=== PATIENT | female | born 1995 | race Caucasian/White ===

== ENCOUNTER 2017-01-01 22:26 | Emergency (ER) | payer MEDICAID ==
--- NOTE | 2017-01-01 22:54 | EDPHY ---
H & P Stated Complaint: 2-3 hrs migraine, couldn't take sumatriptan in time HPI/ROS: HPI CHIEF COMPLAINT: Migraine headache HISTORY OF PRESENT ILLNESS: This patient very pleasant 21-year-old female otherwise healthy no significant medical history except for migraine headaches. She presents emergency room with a left-sided throbbing frontal migraine headache. She reports to me this is exactly like her typical migraine. She gets a headache a week. She has had this since puberty. She denies any neck pain fever or sudden onset thunderclap headache. This feels exactly like her previous migraines. 1 episode of vomiting. No visual disturbance. No chest pain or shortness of breath. She did take sumatriptan prior to arrival. Headaches been present for 2 hours. The sumatriptan did help slightly but continues to have a headache and decided come the emergency room. 10/04 left- sided frontal throbbing. Past Medical History: Migraine headaches Past Surgical History: Denies recent surgery Social History: Denies daily use drugs alcohol tobacco products. [employer] student. Family History: Noncontributory ROS REVIEW OF SYSTEMS: A comprehensive 10 point review of systems is otherwise negative aside from elements mentioned in the history of present illness. Exam Constitutional appears well nontoxic, no acute distress, triage nursing summary reviewed, vital signs reviewed, awake/alert. Vital signs reviewed. Afebrile. Eyes normal conjunctivae and sclera, EOMI, PERRLA. HENT normal inspection, atraumatic, moist mucus membranes, no epistaxis, neck supple/ no meningismus, no raccoon eyes. Respiratory clear to auscultation bilaterally, normal breath sounds, no respiratory distress, no wheezing. Cardiovascular rate normal, regular rhythm, no murmur, no edema, distal pulses normal. Gastrointestinal soft, non-tender, no rebound, no guarding, normal bowel sounds, no distension, no pulsatile mass. Genitourinary no CVA tenderness. Musculoskeletal no midline vertebral tenderness, full range of motion, no calf swelling, no tenderness of extremities, no meningismus, good pulses, neurovascularly intact. Skin pink, warm, & dry, no rash, skin atraumatic. Neurologic no focal neuro deficit on exam. awake, alert and oriented x 3, AAOx3, moves all 4 extremities equally, motor intact, sensory intact, CN II-XII intact, normal cerebellar, normal vision, normal speech. Psychiatric normal mood/affect. Heme/Lymph/Immune no lymphadenopathy. Differential Diagnosis: Includes but is not limited to in a particular order migraine headache, tension headache, cluster headache, dehydration, electrolyte disturbance, doubt intracranial bleed or tumor. Medical Decision Making: Plan for this patient IV establishment IV fluid bolus , migraine cocktail. Vital signs. Basic blood work. Re-evaluate. I do not feel this patient needs imaging at this time. Re-evaluation: 1207AM: On re-examination patient resting comfortably. She feels much better after migraine cocktail medication. Her neurological exam is unremarkable. No focal neuro deficits. I did not image her as she has a normal neurological exam and symptoms are consistent with migraine. Her headache is now resolved with migraine cocktail. I have given her return precautions. She has no meningeal signs. Vital signs are stable. The labs reviewed. Source: Patient - Personal History LMP (Females 10-55): Extended Cycle BCP/Inj Current Tetanus/Diphtheria Vaccine: Yes Current Tetanus Diphtheria and Acellular Pertussis (TDAP): Yes Tetanus Vaccine Date: 2015 - Medical/Surgical History Hx Asthma: No Hx Chronic Respiratory Disease: No Hx Diabetes: No Hx Cardiac Disease: No Hx Renal Disease: No Hx Cirrhosis: No Hx Alcoholism: No Hx HIV/AIDS: No Hx Splenectomy or Spleen Trauma: No Other PMH: migraines - Social History Smoking Status: Never smoked Constitutional: Initial Vital Signs Temperature (C) 37 C 01/01/17 22:43 Heart Rate 94 01/01/17 22:43 Respiratory Rate 16 01/01/17 22:43 Blood Pressure 111/75 01/01/17 22:43 O2 Sat (%) 96 01/01/17 22:43 O2 Delivery Mode Nasal Cannula O2 (L/minute) 2 Allergies/Adverse Reactions: No Known Allergies Allergy (Unverified 01/01/17 22:42) Home Medications: Medication Instructions Recorded Junel 1 mg-20 Mcg Tablet 01/01/17 Nexplanon 01/01/17 Sumatriptan 01/01/17 Medical Decision Making - Data Points Laboratory Results: Laboratory Results 01/01/17 23:04 01/01/17 23:04 01/01/17 01/01/17 23:04 23:04 WBC 11.54 10^3/uL H 10^3/uL (3.80-9.50) RBC 4.74 10^6/uL 10^6/uL (4.18-5.33) Hgb 14.1 g/dL g/dL (12.6-16.3) Hct 41.5 % % (38.0-47.0) MCV 87.6 fL fL (81.5-99.8) MCH 29.7 pg pg (27.9-34.1) MCHC 34.0 g/dL g/dL (32.4-36.7) RDW 12.3 % % (11.5-15.2) Plt Count 317 10^3/uL 10^3/uL (150-400) MPV 9.1 fL fL (8.7-11.7) Neut % (Auto) 45.4 % % (39.3-74.2) Lymph % (Auto) 44.5 % % (15.0-45.0) Braxton % (Auto) 6.4 % % (4.5-13.0) Eos % (Auto) 3.0 % % (0.6-7.6) Baso % (Auto) 0.4 % % (0.3-1.7) Nucleat RBC Rel Count 0.0 % % (0.0-0.2) Absolute Neuts (auto) 5.23 10^3/uL 10^3/uL (1.70-6.50) Absolute Lymphs (auto) 5.13 10^3/uL H 10^3/uL (1.00-3.00) Absolute Monos (auto) 0.74 10^3/uL 10^3/uL (0.30-0.80) Absolute Eos (auto) 0.35 10^3/uL 10^3/uL (0.03-0.40) Absolute Basos (auto) 0.05 10^3/uL 10^3/uL (0.02-0.10) Absolute Nucleated RBC 0.00 10^3/uL 10^3/uL (0-0.01) Immature Gran % 0.3 % % (0.0-1.1) Immature Gran # 0.04 10^3/uL 10^3/uL (0.00-0.10) Sodium 139 mEq/L mEq/L (134-144) Potassium 4.2 mEq/L mEq/L (3.5-5.2) Chloride 106 mEq/L mEq/L (97-110) Carbon Dioxide 22 mEq/l mEq/l (22-31) Anion Gap 11 mEq/L mEq/L (8-16) BUN 20 mg/dL mg/dL (7-23) Creatinine 0.9 mg/dL mg/dL (0.6-1.0) Estimated GFR > 60 Glucose 85 mg/dL mg/dL (70-100) Calcium 9.6 mg/dL mg/dL (8.5-10.4) Medications Given: Discontinued Medications Dexamethasone (Decadron Injection) 10 mg IVP EDNOW ONE Stop: 01/01/17 22:56 Last Admin: 01/01/17 23:11 Dose: 10 mg Diphenhydramine HCl (Benadryl Injection) 50 mg IVP EDNOW ONE Stop: 01/01/17 22:56 Last Admin: 01/01/17 23:07 Dose: 50 mg Sodium Chloride (Ns) 1,000 mls @ 0 mls/hr IV ONCE ONE; Wide Open PRN Reason: Protocol Stop: 01/01/17 22:56 Last Admin: 01/01/17 23:11 Dose: 1,000 mls Ketorolac Tromethamine (Toradol) 30 mg IVP EDNOW ONE Stop: 01/01/17 22:56 Last Admin: 01/01/17 23:08 Dose: 30 mg Metoclopramide HCl (Reglan Injection) 10 mg IVP EDNOW ONE Stop: 01/01/17 22:56 Last Admin: 01/01/17 23:11 Dose: Not Given Departure - Departure Disposition: Home, Routine, Self-Care Clinical Impression: Migraine headache Qualifiers: Migraine type: other Status migrainosus presence: without status migrainosus Intractability: not intractable Qualified Code(s): G43.809 - Other migraine, not intractable, without status migrainosus Condition: Good Instructions: Migraine Headache (ED), Acute Headache (ED) Additional Instructions: 1. Return emergency room if you have worsening symptoms questions or concerns. Referrals: [facility] [Other] - As per Instructions
[2017-01-01] MEDS ORDERED: DEXAMETHASONE 10 MG/ML VIAL IVP ONE (22:55)
[2017-01-01] MEDS ORDERED: METOCLOPRAMIDE 10 MG/2 ML VIAL IVP ONE (22:55)
[2017-01-01] MEDS ORDERED: KETOROLAC 30 MG/1 ML SDV IVP ONE (22:55)
[2017-01-01] MEDS ORDERED: NS 1,000 ML IV ONE (22:55)
[2017-01-01 23:12] LABS: % IMMATURE GRANULYOCYTES 0.3 % (0.0-1.1); ABSOLUTE IMMATURE GRANULOCYTES 0.04 10^3/uL (0.00-0.10); ADD DIFF? NO; ADD MORPH? NO; ADD SCAN? NO; ATYPICAL LYMPHOCYTE FLAG 10 (0-99); FRAGMENT RBC FLAG 0 (0-99); HEMATOCRIT 41.5 % (38.0-47.0); HEMOGLOBIN 14.1 g/dL (12.6-16.3); LEFT SHIFT FLG 0 (0-99); LIPEMIA HEMOLYSIS FLAG 90 (0-99); MEAN CELL HEMOGLOBIN 29.7 pg (27.9-34.1); MEAN CELL VOLUME 87.6 fL (81.5-99.8); MEAN PLATELET VOLUME 9.1 fL (8.7-11.7); PLATELET CLUMPS FLAG 10 (0-99); PLATELET COUNT 317 10^3/uL (150-400); RED BLOOD CELL COUNT 4.74 10^6/uL (4.18-5.33); RED CELL DISTRIBUTION WIDTH 12.3 % (11.5-15.2)
[2017-01-01 23:17] VITALS: O2SAT 100
[2017-01-01 23:23] LABS: ANION GAP 11 mEq/L (8-16); CALCIUM 9.6 mg/dL (8.5-10.4); CARBON DIOXIDE 22 mEq/l (22-31); CHLORIDE 106 mEq/L (97-110); CREATININE 0.9 mg/dL (0.6-1.0); GLOMERULAR FILTRATION RATE > 60; GLUCOSE 85 mg/dL (70-100); POTASSIUM 4.2 mEq/L (3.5-5.2); SODIUM 139 mEq/L (134-144)
[2017-01-02 00:14] VITALS: BP 93/55; PULSE 97; RESP 15; TEMP 98.4
== END 2017-01-02 00:13 | disposition home or self-care (01) ==
DX: G43.809 Other migraine, not intractable, without status migrainosus (principal); E86.9 Volume depletion, unspecified
CPT/HCPCS: 96374; J1100; J1200; J1885; J2765

== ENCOUNTER 2017-12-22 16:38 | Emergency (ER) | payer MEDICAID ==
[2017-12-22 16:55] LABS: PLATELET COUNT 265 10^3/uL (150-400)
--- NOTE | 2017-12-22 16:59 | EDPHY ---
H & P Time Seen by Provider: 12/22/17 16:59 HPI/ROS: CHIEF COMPLAINT: Syncope HISTORY OF PRESENT ILLNESS: The patient presents to the ED after an episode of syncope. The patient reportedly has developed a mild upper respiratory infection with nasal congestion and a slight sore throat. She went to class at the [employer] today and experienced a syncopal episode. She did not fall or sustain trauma. She denies any fever, dysuria or complaints of acute pain. She has no prior history of syncope. She denies any chest pain or difficulty breathing. She denies any asymmetric calf pain or swelling. The patient denies significant past medical history. She denies any history of heavy vaginal bleeding or melena. REVIEW OF SYSTEMS: A comprehensive 10 point review of systems is otherwise negative aside from elements mentioned in the history of present illness. Source: Patient Exam Limitations: No limitations - Personal History LMP (Females 10-55): Irregular Current Tetanus/Diphtheria Vaccine: Yes Current Tetanus Diphtheria and Acellular Pertussis (TDAP): Yes Tetanus Vaccine Date: 2015 - Medical/Surgical History Hx Asthma: No Hx Chronic Respiratory Disease: No Hx Diabetes: No Hx Cardiac Disease: No Hx Renal Disease: No Hx Cirrhosis: No Hx Alcoholism: No Hx HIV/AIDS: No Hx Splenectomy or Spleen Trauma: No Other PMH: migraines - Social History Smoking Status: Never smoked - Physical Exam Exam: General Appearance: Alert, no distress Eyes: Pupils equal and round no pallor or injection ENT, Mouth: Mucous membranes moist Respiratory: There are no retractions, lungs are clear to auscultation Cardiovascular: Regular rate and rhythm Gastrointestinal: Abdomen is soft and nontender, no masses, bowel sounds normal Neurological: A&O, normal motor function, normal sensory exam, normal cranial nerves Skin: Warm and dry, no rashes Musculoskeletal: Neck is supple nontender Extremities: symmetrical, full range of motion Psychiatric: Patient is oriented X 3, there is no agitation Constitutional: Initial Vital Signs Temperature (C) 36.7 C 12/22/17 16:47 Heart Rate 99 12/22/17 16:47 Respiratory Rate 16 12/22/17 16:47 Blood Pressure 102/96 H 12/22/17 16:47 O2 Sat (%) 99 12/22/17 16:47 O2 Delivery Mode Room Air Allergies/Adverse Reactions: No Known Allergies Allergy (Unverified 10/07/17 22:42) Home Medications: Medication Instructions Recorded Junel 1 mg-20 Mcg Tablet 01/01/17 Nexplanon 01/01/17 Sumatriptan 01/01/17 Medical Decision Making - Diagnostics EKG Interpretation: EKG: Complete interpretation has been separately recorded in the [employer] archive. Summary impression: Sinus rhythm, rate 96, no arrhythmia noted ED Course/Re-evaluation: The patient presents to the ED after a likely vasovagal episode in the setting of a mild upper respiratory infection. The patient's vital signs are stable upon arrival. Her EKG demonstrates no evidence of an arrhythmia. Patient had an IV established. She was placed on a cardiac rehab nurse. She received 1 L of normal saline for presumed vasovagal syncope. Patient was re-evaluated at 6:00 p.m.. She is now ambulatory without any recurrent symptoms of syncope or presyncope. The patient has no clinical evidence of a bacterial infection. She will be discharged home with presumptive diagnosis of a vasovagal syncopal event. She is instructed to increase her fluid intake as mild dehydration likely contributed to her symptoms today. Differential Diagnosis: Differential diagnosis considered includes dehydration, vasovagal episode, metabolic derangement, anemia, ectopic - Data Points Laboratory Results: Laboratory Results 12/22/17 16:45 12/22/17 16:45 12/22/17 12/22/17 12/22/17 16:45 16:45 16:45 WBC 13.91 10^3/uL H 10^3/uL (3.80-9.50) RBC 4.48 10^6/uL 10^6/uL (4.18-5.33) Hgb 13.3 g/dL g/dL (12.6-16.3) Hct 41.2 % % (38.0-47.0) MCV 92.0 fL fL (81.5-99.8) MCH 29.7 pg pg (27.9-34.1) MCHC 32.3 g/dL L g/dL (32.4-36.7) RDW 12.0 % % (11.5-15.2) Plt Count 265 10^3/uL 10^3/uL (150-400) MPV 9.9 fL fL (8.7-11.7) Neut % (Auto) 70.0 % % (39.3-74.2) Lymph % (Auto) 19.7 % % (15.0-45.0) Camp % (Auto) 5.8 % % (4.5-13.0) Eos % (Auto) 3.5 % % (0.6-7.6) Baso % (Auto) 0.6 % % (0.3-1.7) Nucleat RBC Rel Count 0.0 % % (0.0-0.2) Absolute Neuts (auto) 9.75 10^3/uL H 10^3/uL (1.70-6.50) Absolute Lymphs (auto) 2.74 10^3/uL 10^3/uL (1.00-3.00) Absolute Monos (auto) 0.80 10^3/uL 10^3/uL (0.30-0.80) Absolute Eos (auto) 0.49 10^3/uL H 10^3/uL (0.03-0.40) Absolute Basos (auto) 0.08 10^3/uL 10^3/uL (0.02-0.10) Absolute Nucleated RBC 0.00 10^3/uL 10^3/uL (0-0.01) Immature Gran % 0.4 % % (0.0-1.1) Immature Gran # 0.05 10^3/uL 10^3/uL (0.00-0.10) Sodium 139 mEq/L mEq/L (135-145) Potassium 4.1 mEq/L mEq/L (3.3-5.0) Chloride 107 mEq/L mEq/L (97-110) Carbon Dioxide 23 mEq/l mEq/l (22-31) Anion Gap 9 mEq/L mEq/L (8-16) BUN 17 mg/dL mg/dL (7-23) Creatinine 0.8 mg/dL mg/dL (0.6-1.0) Estimated GFR > 60 Glucose 74 mg/dL mg/dL (70-100) Calcium 8.9 mg/dL mg/dL (8.5-10.4) Beta HCG, Qual NEGATIVE Medications Given: Discontinued Medications Sodium Chloride (Ns) 1,000 mls @ 0 mls/hr IV EDNOW ONE; Wide Open PRN Reason: Protocol Stop: 12/22/17 17:15 Last Admin: 12/22/17 17:19 Dose: 1,000 mls Departure - Departure Disposition: Home, Routine, Self-Care Clinical Impression: Vasovagal episode, Upper respiratory infection Condition: Good Instructions: Syncope (ED) Additional Instructions: 1. Tylenol and ibuprofen as needed for likely mild viral infection. 2. Please try and increase your fluid intake as mild dehydration likely contributed to your symptoms today. 3. Please return to the ED for recurrent passing out, chest pain, shortness of breath, high fever, acute pain or other concerns. Referrals: [facility],. [Clinic] - As per Instructions
[2017-12-22] MEDS ORDERED: NS 1,000 ML IV ONE (17:14)
--- NOTE | 2017-12-22 17:18 | CPEKG ---
Test Reason : OPEN Blood Pressure : / mmHG Vent. Rate : 096 BPM Atrial Rate : 091 BPM P-R Int : 145 ms QRS Dur : 087 ms QT Int : 355 ms P-R-T Axes : 044 063 040 degrees QTc Int : 449 ms Sinus rhythm Confirmed by Gurwinder Green ([id number]) on 12/22/2017 5:17:45 PM Referred By: Confirmed By:Gurwinder Green
[2017-12-22 17:27] VITALS: BP 101/68
== END 2017-12-22 18:12 | disposition home or self-care (01) ==
LOC: EDUNIT#
DX: R55 Syncope and collapse (principal); R09.81 Nasal congestion; E86.9 Volume depletion, unspecified

== ENCOUNTER 2018-07-19 20:54 | Emergency (ER) | payer OTHER ==
[2018-07-19 21:00] VITALS: BP 124/90
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
== END 2018-07-19 21:55 | disposition home or self-care (01) ==
DX: F07.81 Postconcussional syndrome (principal)